=== PATIENT | female | born 1970 | race Two or more races ===

== ENCOUNTER 2025-08-10 09:00 | Day surgery (SDC) | payer OTHER ==
[2025-08-04 11:53] VITALS: BP 104/68
[~2025-08-10] VITALS: Ht 167.6 cm; Wt 111.1 kg
[~2025-08-10 09:00] MED LIST: ATACAND32 MG PO; BACLOFEN20 MG PO; BUCAPSOL15 MG PO; METHOTREXATE2.5 MG PO; TOPROL XL25 M1 PO; TRAZODONE HCL150 MG PO; ZOLOFT100 MG PO
[2025-08-10] MEDS ORDERED: POVIDONE-IODINE 118 ML BOTT TOP ONE (12:22)
[2025-08-10] MEDS ORDERED: TYLENOL ARTHRI650 MG PO (14:33)
== END 2025-08-10 19:30 | disposition home or self-care (01) ==
LOC: CIR.AMB 09:00
PROVIDERS: ATTEND Obstetrics & Gynecology Gynecology
DX: N84.0 Polyp of corpus uteri (principal); N95.0 Postmenopausal bleeding; Z88.6 Allergy status to analgesic agent